=== PATIENT | male | born 1960 | race Caucasian/White ===

== ENCOUNTER 2019-03-31 10:44 | Observation (INO) ==
[2019-03-31 11:33] LABS: BASO# 0.07 X1000 (0.0-0.2); BASO% 0.6 % (0.0-0.8); EOS# 0.54 X1000 (0.0-0.7); EOS% 4.6 % (0.0-10.0); HEMATOCRIT 43.9 % (42.0-52.0); HEMOGLOBIN 16.1 g/dL (14.0-18.0); IMM GRAN# 0.04 X1000 (0.0-0.04); IMM GRAN% 0.3 % (0.0-0.5); LYMPH# 2.45 X1000 (1.2-3.4); LYMPH% 20.9 % (20.5-51.1); MCH 30.1 PG (27-31); MCHC 36.7 g/dL (33-37); MCV 82.2 FL (81-99); MONO# 1.42 X1000 (0.11-0.59); MONO% 12.1 % (1.7-9.3); MPV 9.9 FL (7.4-10.4); NEUT# 7.18 X1000 (1.4-6.5); NEUT% 61.5 % (42.2-75.2); PLT 292 X1000 (130-400); RBC 5.34 XMIL (4.7-6.1); RDW 13.1 % (11.5-14.5)
[2019-03-31 11:34] LABS: URINE SOURCE CLEAN CATCH
[2019-03-31 11:40] LABS: BILIRUBIN URINE NEGATIVE (NEGATIVE); BLOOD URINE NEGATIVE (NEGATIVE); COLOR STRAW; GLUCOSE URINE NEGATIVE (NEGATIVE); KETONE URINE NEGATIVE (NEGATIVE); LEUKOCYTES URINE NEGATIVE (NEGATIVE); NITRITE URINE NEGATIVE (NEGATIVE); PH URINE 6.5; PROTEIN URINE NEGATIVE (NEGATIVE); SP GRAVITY URINE 1.006; TURBIDITY URINE CLEAR (CLEAR); UROBILINOGEN URINE NORMAL (NORMAL)
[2019-03-31 11:41] LABS: UR EPITHELIAL CELLS <10 /HPF (<10); URINE BACTERIA NEGATIVE /HPF; URINE RBC <10 /HPF (<10); URINE WBC <10 /HPF (<10)
[2019-03-31 11:43] LABS: AGAP 12; BUN 12 mg/dL (8-22); CHLORIDE 104 mmol/L (98-107); COSMO 275; CREATININE 0.7 mg/dL (0.7-1.2); ESTIMATED GFR > 60; GLUCOSE 89 mg/dL (70-104); SODIUM 138 mmol/L (136-145); TCO2 22 mmol/L (25-35)
[2019-03-31] MEDS ORDERED: ASPIRIN PO ONE (11:51)
[2019-03-31 11:57] LABS: UR AMPHETAMINES QUAL NONE DETECTED (NONE DETECT); UR BARBITUATES QUAL NONE DETECTED (NONE DETECT); UR BENZODIAZEPIN QUAL NONE DETECTED (NONE DETECT); UR CANNABINOIDS QUAL NONE DETECTED (NONE DETECT); UR COCAINE QUAL NONE DETECTED (NONE DETECT); UR METHADONE QUAL NONE DETECTED (NONE DETECT); UR METHAMPHETAMINE QUAL NONE DETECTED (NONE DETECT); UR OPIATES QUAL NONE DETECTED (NONE DETECT); UR OXYCODONE QUAL NONE DETECTED (NONE DETECT); UR PCP QUAL NONE DETECTED (NONE DETECT); UR PROPOXYPHENE QUAL NONE DETECTED (NONE DETECT); UR TCA QUAL NONE DETECTED (NONE DETECT)
--- NOTE | 2019-03-31 12:03 | Diag Imaging Result Doc PS360 ---
EXAM: CT HEAD W/O CONTRAST 03/31/2019 HISTORY: TIA/CVA TECHNIQUE: This exam was performed using automated exposure control, adjustment of mA or kV according to patient size, and/or use of iterative reconstruction technique. COMMENT: There is no evidence of mass effect, bleed, or abnormal extra-axial fluid collection. There is mucosal thickening and opacification of multiple ethmoid air cells and a small amount of fluid is present in the left sphenoid sinus. Compared to 08/24/2015 the appearance the brain has not changed significantly. The ethmoid sinusitis is slightly worse than on the previous study. IMPRESSION: No evidence of acute intracranial disease. Sinusitis. Electronically signed by Sergio Stiles 03/31/2019 12:00 PM
--- NOTE | 2019-03-31 12:18 | Diag Imaging Result Doc PS360 ---
EXAM: CHEST-PORTABLE 03/31/2019 HISTORY: CVA/TIA TECHNIQUE: AP portable at 1147 COMMENT: The inspiration is better than on 05/14/2017. There is no evidence of acute cardiac or pulmonary disease otherwise. IMPRESSION: No acute disease. Electronically signed by Sergio Stiles 03/31/2019 12:16 PM
--- NOTE | 2019-03-31 13:09 | PROVIDER DOCUMENTATION ---
This chart was entered by Doreen Armstrong Scribe, acting as scribe for Ras Oscar MD. HPI-Neurological Disorder - General Chief Complaint: Numbness Stated Complaint: STROKE SX Time Seen by Provider: 03/31/19 10:53 Source: patient Allergies/Adverse Reactions: Patient Allergies Allergy/AdvReac Type Severity Reaction Status Date / Time hydrocodone AdvReac Unknown Verified 10/16/17 06:06 Home Medications: Home Medication List Medication Instructions Recorded Confirmed Last Taken Type ATORVAstatin [Lipitor] 40 mg PO DAILY 10/12/17 03/31/19 03/31/19 History Aspirin 325 mg PO DAILY 10/12/17 03/31/19 03/31/19 History Nebivolol [Bystolic] 5 mg PO DAILY 10/12/17 03/31/19 03/31/19 History - History of Present Illness-Neuro Nature of Presenting Problem: Pt is a 58 yom who presents to the ED w/ a complaint of L neck pain, L face numbness, and right arm numbness. Pt has a hx of stroke which occurred yr w/ similar symptoms. Pt states that his neck pain began last night and worsened this morning. Pt also reports blurry vision this morning. Pt has clear speech and movement. Pt has high cholesterol and high BP and takes medication for both. Pt also reports that he takes 325mg of aspirin per day. Onset/Duration: reports: 24 hours ago, this morning Timing: reports: still present Context: reports: none Character of Altered Mental Status: reports: N/A Any recent trauma/injury?: reports: none Character of Deficits: reports: vision problem/glaucoma New weakness or altered sensation location:: reports: left facial (numbness) Cognitive Baseline: alert, oriented x3 Gait Baseline: walks without assistance Associated Symptoms: reports: neck/back pain, vision changes, other (numbness in right arm and left face) Similar Symptoms Previously?: Yes (stroke, last yr ) Recently seen or treated by another doctor?: No Review of Systems - Adult - REVIEW OF SYSTEMS - ADULT Constitutional: reports: see HPI Eyes: reports: see HPI, blurred vision Ears, Nose, Mouth & Throat: reports: no symptoms reported Cardiovascular: reports: no symptoms reported Respiratory: reports: no symptoms reported Gastrointestinal: reports: no symptoms reported Genitourinary: reports: no symptoms reported Musculoskeletal: reports: see HPI, neck pain (Left) Integumentary: reports: no symptoms reported Neurological: reports: see HPI, numbness (in Right arm and left side of face). denies: dizziness/vertigo, headache/migraines, slurred speech Psychiatric: reports: no symptoms reported Endocrine: reports: no symptoms reported Hematologic/Lymphatic: reports: no symptoms reported Allergic/Immunologic: reports: no symptoms reported All Other Systems: Reviewed and Negative Past History - Adult - PAST MEDICAL HISTORY-ADULT Review of Records: reports: Nursing Assessment Review, Medications Reviewed, Social history reviewed & non-contributory. Major Childhood Illnesses: reports: denies history Cardiovascular: reports: hyperlipidemia, other (cath 2005) Respiratory: reports: denies history Gastrointestinal: reports: denies history Obstetrical/Gynecological: reports: denies history Genitourinary: reports: denies history Musculoskeletal: reports: denies history Neurological: reports: TIA (OBSERVATION AT [facility] 1-2 YR AGO BUT NO MRI OR STUDIES PERFORMED.) Psychiatric: reports: denies history Endocrine/Immune: reports: denies history Other Conditions: reports: denies history - PRIOR SURGERIES/PROCEDURES Surgical/Procedure History: reports: cholecystectomy, tonsillectomy, hernia repair, orthopedic (extremity) - IMMUNIZATION STATUS Childhood Immunizations: See Nurse Assessment Flu Vaccine: See Nurse Assessment - FAMILY HISTORY Family History: reviewed, not pertinent - SOCIAL HISTORY Smoking: quit greater than 1 year, chew Substance Use: denies Living Situation: family Physical Exam- Neurological - Physical Exam-Neuro Initial Vital Signs Reviewed: Yes General Appearance: alert, no apparent distress HENMT: normocephalic/atraumatic, moist mucous membranes Head Injury: no evidence of injury Neck: non-tender, full range of motion, supple, normal inspection Respiratory: chest non-tender, lungs clear, normal breath sounds Cardiovascular: normal peripheral pulses, regular rate, rhythm Abdominal Exam: normal bowel sounds, soft, hernia (periumbilical, easily reduced) Lymphatic: no adenopathy Extremity: normal range of motion, 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 negative: facial droop Motor/Sensory: no motor deficit, no sensory deficit, no pronator drift Neurologic: negative: facial droop Integumentary: normal color, normal turgor, warm/dry Psych/Mental Status: normal mood/affect, normal thought content, normal thought process, oriented x 3 - Glascow Coma Scale Best Eye Response: (4) open spontaneously Best Verbal Response: (5) oriented Best Motor Response: (6) obeys commands (15) Progress - PLAN OF CARE/RESULTS Progress/Plan/Lab Results: Vital Signs - 8 hr 03/31/19 10:48 Temperature 98.5 F Pulse Rate 61 Respiratory Rate 18 Blood Pressure 149/82 O2 Sat by Pulse Oximetry 96 Laboratory Results - last 24 hr 03/31/19 03/31/19 03/31/19 11:11 11:11 11:25 WBC 11.70 H RBC 5.34 Hgb 16.1 Hct 43.9 MCV 82.2 MCH 30.1 MCHC 36.7 RDW Std Deviation 13.1 Plt Count 292 MPV 9.9 Immature Gran % (Auto) 0.3 Neut % (Auto) 61.5 Lymph % (Auto) 20.9 [place] % (Auto) 12.1 H Eos % (Auto) 4.6 Baso % (Auto) 0.6 Immature Gran # (Auto) 0.04 Neut # (Auto) 7.18 H Lymph # (Auto) 2.45 [place] # (Auto) 1.42 H Eos # (Auto) 0.54 Baso # (Auto) 0.07 Sodium 138 Potassium 4.0 Chloride 104 Carbon Dioxide 22 L Anion Gap 12 BUN 12 Creatinine 0.7 Estimated GFR/1.73 m2 > 60 BUN/Creatinine Ratio 17 Glucose 89 Calculated Osmolality 275 Calcium 9.0 Urine Source CLEAN CATCH Urine Color STRAW Urine Turbidity CLEAR Urine pH 6.5 Ur Specific [place] 1.006 Urine Protein NEGATIVE Ur Glucose (Stick) NEGATIVE Ur Ketones (Stick) NEGATIVE Urine Blood NEGATIVE Urine Nitrite NEGATIVE Urine Bilirubin NEGATIVE Urobilinogen Dipstick NORMAL Urine Leukocytes NEGATIVE Urine WBC (Auto) <10 Urine RBC (Auto) <10 U Epithel Cells (Auto) <10 Urine Bacteria (Auto) NEGATIVE Urine Opiates Screen Ur Oxycodone Screen Urine Methadone Screen U Propoxyphene Qual Ur Barbituates Screen Ur Tricyclics Screen Ur Phencyclidine Scrn Ur Amphetamines Screen U Methamphetamines Scrn U Benzodiazepines Scrn Urine Cocaine Screen U Cannabinoids Screen 03/31/19 11:25 WBC RBC Hgb Hct MCV MCH MCHC RDW Std Deviation Plt Count MPV Immature Gran % (Auto) Neut % (Auto) Lymph % (Auto) [place] % (Auto) Eos % (Auto) Baso % (Auto) Immature Gran # (Auto) Neut # (Auto) Lymph # (Auto) [place] # (Auto) Eos # (Auto) Baso # (Auto) Sodium Potassium Chloride Carbon Dioxide Anion Gap BUN Creatinine Estimated GFR/1.73 m2 BUN/Creatinine Ratio Glucose Calculated Osmolality Calcium Urine Source Urine Color Urine Turbidity Urine pH Ur Specific [place] Urine Protein Ur Glucose (Stick) Ur Ketones (Stick) Urine Blood Urine Nitrite Urine Bilirubin Urobilinogen Dipstick Urine Leukocytes Urine WBC (Auto) Urine RBC (Auto) U Epithel Cells (Auto) Urine Bacteria (Auto) Urine Opiates Screen NONE DETECTED Ur Oxycodone Screen NONE DETECTED Urine Methadone Screen NONE DETECTED U Propoxyphene Qual NONE DETECTED Ur Barbituates Screen NONE DETECTED Ur Tricyclics Screen NONE DETECTED Ur Phencyclidine Scrn NONE DETECTED Ur Amphetamines Screen NONE DETECTED U Methamphetamines Scrn NONE DETECTED U Benzodiazepines Scrn NONE DETECTED Urine Cocaine Screen NONE DETECTED U Cannabinoids Screen NONE DETECTED Orders Category Date Time Status Cardiac Monitoring DIRECTED Care 03/31/19 10:59 Active Saline Loc NOW Care 03/31/19 10:59 Active CHEST-PORTABLE [RAD] Stat Exams 03/31/19 11:[address] HEAD W/O CONTRAST [CT] Stat Exams 03/31/19 11:09 Completed BASIC METABOLIC PANEL [CHEM] Stat Lab 03/31/19 11:11 Completed CBC WITH ELECTRONIC DIFF [HEME] Stat Lab 03/31/19 11:11 Completed URINALYSIS W/POSS RFLX CULT [URINALYSIS] Stat Lab 03/31/19 11:25 Completed URINE DRUG SCREEN PL Stat Lab 03/31/19 11:25 Completed Aspirin Med 03/31/19 11:51 Discontinued 325 mg PO NOW ONE EKG [EKG] Stat Ther 03/31/19 10:59 Ordered Result Diagrams: 03/31/19 11:11 03/31/19 11:11 - REASSESSMENT Reassessment #1 Time Reassessed: 12:47 Status: improving Reassessment Comment: Dicuss admission Reassessment #2 Time Reassessed: 12:59 Status: improving (remains free of any weakness and left facial numbness has resolved. Pt and family desire a full neuro work up as this is 2nd TIA event.) - EKG 1 Time of EKG reading by physician:: 11:07 EKG Read and Signed by:: Ras Oscar EKG Interpretation (*Must complete 3 of following elements*): Normal (rate 60 NSR) - XRAY 1 XRAY: Bilateral XRAY Study: Chest Impression: Normal (EXAM: CHEST-PORTABLE 03/31/2019 HISTORY: CVA/TIA TECHNIQUE: AP portable at 1147 COMMENT: The inspiration is better than on 05/14/2017. There is no evidence of acute cardiac or pulmonary disease otherwise. IMPRESSION: No acute disease. Electronically signed by Sergio Stiles 03/31/2019 12:16 PM 03/31/19 1216 Interpreting Physician: Sergio Stiles MD Dictated Date/Time: 03/31/19 1215 cc: Ras Oscar MD; Nile Alcocer MD) - CT/MRI 1 CT Study: Head Impression: Abnormal (EXAM: CT HEAD W/O CONTRAST 03/31/2019 HISTORY: TIA/CVA TECHNIQUE: This exam was performed using automated exposure control, adjustment of mA or kV according to patient size, and/or use of iterative reconstruction technique. COMMENT: There is no evidence of mass effect, bleed, or abnormal extra-axial fluid collection. There is mucosal thickening and opacification of multiple ethmoid air cells and a small amount of fluid is present in the left sphenoid sinus. Compared to 08/24/2015 the appearance the brain has not changed significantly. The ethmoid sinusitis is slightly worse than on the previous study. IMPRESSION: No evidence of acute intracranial disease. Sinusitis. Georgiana ctronically signed by Sergio Stiles 03/31/2019 12:00 PM 03/31/19 1200 Interpreting Physician: Sergio Stiles MD Dictated Date/Time: 03/31/19 1159 cc: Ras Oscar MD; Nile Alcocer MD) - CONSULTS/PCP/HOSPITALIST Notification #1 *Consult/PCP/Hospitalist*: Juan Mcrae Time Discussed: 12:47 Reason/Comments: accepts admission Consult Disposition: Admit (Dr. Victor accepted admission) Departure - Departure Date of Disposition Decision: 03/31/19 Time of Disposition Decision: 13:04 DIAGNOSIS: TIA (transient ischemic attack) Disposition: ADMITTED INPATIENT 09 Certified Medical Emergency: Emergent Condition: Stable Referrals and Follow-Ups: Nile Alcocer MD [Primary Care Provider] - - Critical Care Note This patient required my direct & personal management of CC.: No Attestation - Physician/ DEMETRIO Attestation Patient care was provided by Advanced Practice Provider:: No The physician spent face to face time with patient:: Yes Advanced Practice Provider documentation review:: Supervising physician onsite and consulted in the evaluation and care of this patient. The physician did have a face to face encounter with the patient. - NIH Stroke Scale NIH Type: Initial Evaluation Level of Consciousness: 0-Alert LOC Questions (ask month and age): 0-Answers Both Correctly LOC Commands (ask to open & close eyes;make a fist, let go): 0-Obeys Both Co rrectly Best Gaze (horizontal eye movement): 0-Normal Visual (use finger movement, counting or visual threat): 0-No Visual Loss Facial Palsy (show teeth or raise eyebrows & close eyes tght: 0-Symmetrical Movement Motor Function-left arm: 0-Normal Motor Function-right arm: 0-Normal Motor Function-left le-Normal Motor Function-right le-Normal Limb Ataxia(firnom-tyqz-tgilwe, or heel to guerra): 0-No Ataxia Sensory(pin prick to face,arms,trunk,legs-compare side/side): 0-No Ataxia Best Language(name item/read sentence.Ex-Down to Earth): 0-No Aphasia (numbness left face, no weakness or speech changes.) Dysarthria(Pt read words or say words Ex.Mama,Tip-Top,Thanks: 0-Normal Articulation Extinction and Inattention: 0-Normal This chart was documented by the indicated scribe, (Doreen Armstrong Scribe) and accurately reflects the services I performed and decisions made by me, Ras Almeida MD, as attested by the provider's signature.
[2019-03-31] MEDS ORDERED: TYLENOL PO PRN (13:47)
[2019-03-31] MEDS ORDERED: ZOFRAN ODT PO PRN (13:47)
--- NOTE | 2019-03-31 15:35 | EKG Report ---
Test Performed on : 03/31/2019 11:01:00 AM Test Reason : TIA Blood Pressure : / mmHG Vent. Rate : 060 BPM Atrial Rate : 060 BPM P-R Int : 120 ms QRS Dur : 094 ms QT Int : 418 ms P-R-T Axes : 008 003 -11 degrees QTc Int : 418 ms Normal sinus rhythm. Normal ECG When compared with ECG of 16-OCT-2017 05:29, Questionable change in QRS axis ST no longer elevated in Inferior leads T wave inversion now evident in Inferior leads Unconfirmed Result
[2019-03-31] MEDS ORDERED: FLU VACCINE IM ONE (16:45)
--- NOTE | 2019-03-31 18:13 | HISTORY AND PHYSICAL ---
CHIEF COMPLAINT: Left facial numbness. HISTORY OF PRESENT ILLNESS: The patient is a 58-year-old male who presented to the emergency department noting that he started having some left neck pain and then facial numbness. Also states that he had some right arm numbness, but this has resolved. He states that he had a stroke approximately a year ago with similar symptoms, but all of his symptoms eventually resolved. Notes that the neck pain began last night, worsened this morning. ALLERGIES: To hydrocodone. MEDICATIONS: Lipitor 40, aspirin 325, Bystolic 5. PAST MEDICAL HISTORY: High cholesterol, history of TIA a year ago, hypertension. He had a heart catheterization in 2005 that was normal. SURGICAL HISTORY: Cholecystectomy, tonsillectomy, hernia repair. FAMILY HISTORY: Noncontributory. SOCIAL HISTORY: The patient quit smoking greater than a year ago. Denies alcohol or illicit substance use. FAMILY HISTORY: Positive for hypertension. PHYSICAL EXAMINATION: VITAL SIGNS: Temperature 98 degrees, pulse 61, respiratory rate 18, BP 149/82, sat 92% on room air. GENERAL: Patient is awake, alert, very pleasant. He is in no respiratory distress. Speech is regular, clear. He has no current focal appreciable deficits. He has no facial weakness. He moves all extremities well. HEENT: Tongue and throat is normal. Uvula midline. Pupils equal, round, reactive to light. HEENT normocephalic. NECK: Supple. CARDIOVASCULAR: Regular rate. No murmurs. CHEST: Clear. Nonlabored. ABDOMEN: Soft, nondistended, nontender. EXTREMITIES: No edema. SKIN: Warm dry. No rashes. ASSESSMENT: 1. Acute neurologic event with left facial weakness which appears to be resolving. 2. High cholesterol. 3. Hypertension. 4. Former tobacco use. PLAN: We are going to admit the patient to the hospital, check carotid, echo. Certainly will need an MRI. This may be able to be done as an outpatient. Further orders as needed. cc: Jeremy Churchill MD
[2019-04-01 05:47] LABS: HEMATOCRIT 44.4 % (42.0-52.0); HEMOGLOBIN 15.8 g/dL (14.0-18.0); MCH 29.3 PG (27-31); MCHC 35.6 g/dL (33-37); MCV 82.2 FL (81-99); MPV 9.7 FL (7.4-10.4); RBC 5.4 XMIL (4.7-6.1); RDW 13.3 % (11.5-14.5); WBC 10.11 X1000 (4.8-10.8)
[2019-04-01 06:05] LABS: AGAP 12; ALKALINE PHOSPHATASE 93 U/L (32-122); BUN 12 mg/dL (8-22); CALCIUM 8.8 mg/dL (8.8-10.2); CHLORIDE 107 mmol/L (98-107); COSMO 281; CREATININE 0.8 mg/dL (0.7-1.2); ESTIMATED GFR > 60; GLUCOSE 102 mg/dL (70-104); GOT 25 U/L (10-34); GPT 36 U/L (10-44); MAGNESIUM 2.1 mg/dL (1.5-2.7); POTASSIUM 4.1 mmol/L (3.5-5.1); SODIUM 141 mmol/L (136-145); TCO2 23 mmol/L (25-35); TOTAL PROTEIN 6.4 g/dL (6.3-8.3)
[2019-04-01 06:08] LABS: CHOLESTEROL 171 mg/dL (0-200); HDL 33 mg/dL (35-55); LDL 84 mg/dL; TRIGLYCERIDES 271 mg/dL (39-160); VLDL 54 mg/dL
[2019-04-01] MEDS ORDERED: BYSTOLIC PO SCH (09:00)
[2019-04-01] MEDS ORDERED: ASPIRIN PO SCH (09:00)
--- NOTE | 2019-04-01 14:38 | Diag Imaging Result Doc PS360 ---
MRI BRAIN W/O CONTRAST - 04/01/2019 INDICATION: ? cva COMPARISON: CT from 03/31/2019 FINDINGS: There is no area of restricted diffusion. The ventricles and sulci are normal in size and contour. No intracranial mass or hemorrhage. Midline structures including the optic chiasm and pituitary are normal. IMPRESSION: Negative exam. Electronically signed by Alonso Turcios 04/01/2019 2:36 PM
--- NOTE | 2019-04-01 16:50 | Vascular Study Report ---
EXAM: Carotid Ultrasound - 03/31/2019 HISTORY: Acute CVA workup TECHNIQUE: Carotid flow studies COMPARISON: None. FINDINGS: There is mild smooth atherosclerotic plaquing at the carotid bulb and internal carotid on the right. Maximum systolic velocity in the right internal carotid is 85 cm/s, maximum diastolic velocity is 27 cm/s. The right internal to common carotid systolic velocity ratio is 0.7. The flow velocities and ratio are consistent with 0-39% stenosis at the right internal carotid. The right vertebral demonstrates antegrade flow. There is mild smooth atherosclerotic plaquing at the carotid bulb and internal carotid on the left. Maximal systolic velocity at the left internal carotid is 79 cm/s, maximum diastolic velocity is 26 cm/s. The left internal to common carotid systolic velocity ratio is 0.6. The flow velocities and ratio are consistent with 0-39% stenosis at the left internal carotid. The left vertebral demonstrates antegrade flow. IMPRESSION: 0-39% stenosis at right internal carotid. 0-39% stenosis at left internal carotid. Electronically signed by Chaparro Caro 04/01/2019 4:48 PM
[2019-04-01 16:59] VITALS: BP 137/71
[2019-04-01] MEDS ORDERED: LIPITOR PO SCH (21:00)
--- NOTE | 2019-04-02 08:36 | ECHO REPORT ---
ORDER DATE: 04/01/2019 MEASUREMENTS: 1. Septal thickness 1.2. 2. Left ventricular internal diameter diastole 4.9. 3. Posterior wall thickness 1.2. 4. Left ventricular internal diameter in systole 3.4. 5. Left atrium 4.0. 6. Aortic root 3.4. SUMMARY: 1. Technically difficult study due to limited acoustic window quality. 2. Aortic valve is not well imaged, but appears to be trileaflet and opens normally on 2- dimensional images. Peak gradient across aortic valve is less than 10 mmHg. Mitral and tricuspid valves are without evidence of structural abnormality while pulmonic valve was not well demonstrated. There is trace mitral regurgitation and trace tricuspid regurgitation. 3. Aortic root is normal in size. 4. Normal left ventricular chamber size with mild concentric left ventricular hypertrophy is demonstrated. Estimated left ventricular ejection fraction appears to be at least 60%. No regional wall motion abnormalities are evident. Left atrium is borderline enlarged. Right atrium and right ventricle are normal in size with grossly preserved right ventricular systolic function. 5. No pericardial effusion. 6. Appearance of inferior vena cava suggests normal central venous pressure. cc: MD Jeremy Tolbert MD
--- NOTE | 2019-04-02 21:53 | DISCHARGE SUMMARY ---
ADMISSION DATE: 03/31/2019 DISCHARGE DATE: 04/01/2019 DISCHARGE DIAGNOSES: 1. Acute neurologic event. Appears to have resolved. 2. Hypercholesterolemia. 3. Hypertension. 4. Former tobacco abuse. CONSULTATIONS: None. PROCEDURES: None. BRIEF HOSPITAL COURSE: Patient was admitted to the hospital with numbness and tingling on the left side of his face as well as his left jaw. Thankfully, his symptoms have resolved. He may still have some slight numbness in his jaw. The patient is unsure. He did have an MRI and carotid, both of which were normal. We are going to discharge him home. He is going to continue aspirin as well as his cholesterol medication. He will follow up outpatient with treatment facility of choice. cc: Jeremy Churchill MD
== END 2019-04-01 18:57 | disposition home or self-care (01) ==
LOC: P.ED 10:44 → P.MEDSURG 10:44
PROVIDERS: ATTEND Family Medicine